=== PATIENT | male | born 1940 | race Caucasian/White ===

== ENCOUNTER 2019-06-04 07:14 | Day surgery (SDC) | payer MEDICARE, MEDICAID ==
[2019-06-04] MEDS ORDERED: DIPHENHYDRAMINE HCL 50 MG/ML VIAL ONE (08:42)
[2019-06-04] MEDS ORDERED: ONDANSETRON HCL INJ/PF 4 MG/2 ML SDV ONE (08:42)
[2019-06-04] MEDS ORDERED: FLUMAZENIL INJ 0.5 MG/5 ML VIAL ONE (08:43)
[2019-06-04] MEDS ORDERED: NALOXONE HCL INJ/PF 0.4 MG/1 ML SDV ONE (08:43)
[2019-06-04] MEDS ORDERED: EPINEPHRINE INJ 1 MG/10 ML DISP.SYRIN ONE (08:43)
[2019-06-04] MEDS ORDERED: GLUCAGON,HUMAN RECOMB 1 MG INJ ONE (08:43)
[2019-06-04] MEDS: FENTANYL CITRATE INJ/PF 100 MCG/2 ML AMPUL ONE ×4 (08:59→09:14)
[2019-06-04] MEDS: MIDAZOLAM 2 MG/2 ML INJ ONE ×4 (08:59→09:16)
--- NOTE | 2019-06-04 09:51 | Operative Report ---
Nonrecallable Operative Report DATE OF SURGERY: 06/04/19 PREOPERATIVE DIAGNOSIS: screening colonoscopy POSTOPERATIVE DIAGNOSIS: screening colonoscopy OPERATION: colonoscopy with cecal polypectomy SURGEON: GILES CUNNINGHAM ANESTHESIA: Moderate Sedation TISSUE REMOVED OR ALTERED: cecal polyp COMPLICATIONS: none ESTIMATED BLOOD LOSS: 0 INTRAOPERATIVE FINDINGS: cecal polyp PROCEDURE: Patient was brought to the endoscopy suite awake alert in stable condition placed on the endoscopy table in the left lateral decubitus position after appropriate timeout and site verification the patient was sedated with Versed and fentanyl. The Olympus colonoscope was passed into the rectum and traversed the sigmoid colon the descending colon splenic flexure transverse colon hepatic flexure and ascending colon to the cecum patient prep was fair there was some liquid stool that required suctioning to get complete visualization. Evaluation of the cecum revealed a very diminutive polyp approximately 2 mm in diameter which was cold forceps biopsied. The scope was withdrawn we evaluated the ascending colon hepatic flexure transverse colon all appeared to be normal without mucosal abnormalities splenic flexure was visualized also appeared to be normal as was the descending colon and sigmoid colon. As we withdrew the scope we identified grade 3 hemorrhoids which were nonbleeding. Scope was then removed. Impression diminutive polyp in the cecum which was cold forceps biopsies. Will await final pathology patient can return for follow-up in my clinic in 10 to 14 days
--- NOTE | 2019-06-04 09:52 | Discharge Summary ---
Discharge Summary (SDC) - Discharge Final Diagnosis: Screening colonoscopy Date of Surgery: 06/04/19 Discharge Date: 06/04/19 Condition: Good Forms: Sedation D/C Instructions, Discharge POC-Surgical Service Referrals: GILES CUNNINGHAM MD [ACTIVE STAFF] - Discharge Diet: As Tolerated Discharge Activity: Activity As Tolerated, Balance Activity w/Rest, No Driving Home Care Assistance: None Needed Report the Following to Your Physician Immediately: Shortness of Breath, Nausea, Vomiting, Increase in Pain - Patient follow-up in my office in 10 to 14 days, Fever over 101 Degrees, Unusual Bleeding, IV Site Infection Signs
[2019-06-04 11:21] VITALS: BP 118/82
== END 2019-06-04 11:00 | disposition home or self-care (01) ==
LOC: END 07:14
PROVIDERS: ATTEND Surgery
DX: Z12.11 Encounter for screening for malignant neoplasm of colon (principal); D12.0 Benign neoplasm of cecum; K64.9 Unspecified hemorrhoids; Z80.0 Family history of malignant neoplasm of digestive organs; I10 Essential (primary) hypertension; Z79.899 Other long term (current) drug therapy; Z79.82 Long term (current) use of aspirin
CPT/HCPCS: 45380; 88305 ×2; J2250; J3010; J0171; J1200; J1610; J2310; J2405; J3490